=== PATIENT | male | born 1960 | race Caucasian/White ===

== ENCOUNTER 2017-05-05 21:23 | Emergency (ER) | payer OTHER ==
[~2017-05-05] VITALS: Ht 162.6 cm; Wt 72.0 kg
[2017-05-06 00:33] VITALS: BP 121/79
== END 2017-05-06 00:33 | disposition home or self-care (01) ==
LOC: ER 21:23
DX: Z76.0 Encounter for issue of repeat prescription (principal); E11.9 Type 2 diabetes mellitus without complications
CPT/HCPCS: 93005; 99283